=== PATIENT | male | born 1975 | race Caucasian/White ===

== ENCOUNTER 2018-02-10 08:41 | Emergency (ER) | payer MEDICAID, OTHER ==
[2018-02-10] MEDS ORDERED: LORazepam 2 MG/ML INJ IVP ONE ×2 (09:05→10:16)
[2018-02-10] MEDS ORDERED: NS 1,000 ML IV ONE ×2 (09:05→10:16)
--- NOTE | 2018-02-10 09:08 | EDPHY ---
H & P Smoking Status: Never smoked Time Seen by Provider: 02/10/18 08:56 HPI/ROS: CHIEF COMPLAINT: Vomiting, alcohol withdrawal HISTORY OF PRESENT ILLNESS: 42-year-old male presents to the emergency department with multiple episodes of vomiting and acute alcohol withdrawal. He typically drinks heavily daily and his last drink was yesterday afternoon. He was at the [facility] and he was sent to the emergency department for evaluation. He has been vomiting about every 0.5 hr. He denies hematemesis. No melena. Diffuse abdominal cramping. He has a headache. No diarrhea. No fevers or chills. No history of alcohol withdrawal seizure. REVIEW OF SYSTEMS: Constitutional: No fever, no chills. Eyes: No double or blurry vision. ENT: No sore throat. Respiratory: No cough, no shortness of breath. Cardiac: No chest pain. Gastrointestinal: Vomiting as above. Abdominal cramping. No diarrhea. Genitourinary: No dysuria. Musculoskeletal: No neck or back pain. Skin: No rashes. Neurological: headache. (Shaylee Beltran) Past Medical/Surgical History: Alcoholism, hypertension (Shaylee Beltran) Social History: Single and lives in [place] (Shaylee Beltran) Physical Exam: General Appearance: Alert, no distress. Tremulous. Eyes: Pupils equal and round. Extraocular motions are all intact. ENT: Mouth: Mucous membranes are dry. Respiratory: No wheezing, rhonchi, or rales, lungs are clear to auscultation. Cardiovascular: Regular rate and rhythm. Gastrointestinal: Abdomen is soft and nontender, no masses, no rebound or guarding, bowel sounds normal. Neurological: Alert and oriented x 3, cranial nerves II through XII grossly intact Skin: Warm and dry, no rashes. Musculoskeletal: Nontender to palpate along the cervical, thoracic or lumbar spine. Neck is supple. Extremities: Full range of motion and no peripheral edema. Psychiatric: Patient is oriented X 3, there is no agitation. (Shaylee Beltran) Constitutional: Initial Vital Signs Temperature (C) 36.6 C 02/10/18 08:48 Heart Rate 99 02/10/18 08:48 Respiratory Rate 16 02/10/18 08:48 Blood Pressure 147/115 H 02/10/18 08:48 O2 Sat (%) 95 02/10/18 08:48 O2 Delivery Mode Room Air Allergies/Adverse Reactions: lisinopril Allergy (Verified 02/10/18 08:47) Home Medications: Medication Instructions Recorded Amlodipine Besylate 02/10/18 Chlorthalidone 02/10/18 Citalopram 02/10/18 Levothyroxine 02/10/18 Losartan Potassium 02/10/18 Medical Decision Making ED Course/Re-evaluation: The patient had an IV established and laboratory studies were drawn. He will be given IV Ativan and IV normal saline. Laboratory studies are unremarkable. The patient was serially re-examined. He received a total of 2 mg of IV Ativan , 2 L of IV normal saline, and 50 mg of oral Librium. The patient was feeling much better. He was tolerating p.o. Fluids. He is comfortable being discharged back to the [facility]. (Shaylee Beltran) I did not see this patient while he was in the emergency department. However his care was discussed with PA while the patient was in the department. I agree with treatment plan and management (Jonathan Duval) Differential Diagnosis: Including but not limited to alcohol withdrawal, electrolyte abnormality, dehydration, delirium tremors (Shaylee Beltran) - Data Points Laboratory Results: Laboratory Results 02/10/18 09:13 02/10/18 09:13 Medications Given: Discontinued Medications Chlordiazepoxide (Librium 25 Mg Prepack#6) 1 btl TAKEHOME EDNOW ONE Stop: 02/10/18 11:31 Last Admin: 02/10/18 11:37 Dose: 1 btl Chlordiazepoxide HCl (Librium) 50 mg PO EDNOW ONE Stop: 02/10/18 10:36 Last Admin: 02/10/18 10:39 Dose: 50 mg Sodium Chloride (Ns) 1,000 mls @ 0 mls/hr IV ONCE ONE PRN Reason: Wide Open Stop: 02/10/18 09:06 Last Admin: 02/10/18 09:17 Dose: 1,000 mls Sodium Chloride (Ns) 1,000 mls @ 0 mls/hr IV ONCE ONE PRN Reason: Wide Open Stop: 02/10/18 10:17 Last Admin: 02/10/18 10:18 Dose: 1,000 mls Lorazepam (Ativan Injection) 1 mg IVP EDNOW ONE Stop: 02/10/18 09:06 Last Admin: 02/10/18 09:18 Dose: 1 mg Lorazepam (Ativan Injection) 1 mg IVP EDNOW ONE Stop: 02/10/18 10:17 Last Admin: 02/10/18 10:18 Dose: 1 mg Departure - Departure Disposition: Home, Routine, Self-Care Clinical Impression: Alcohol withdrawal, Vomiting Condition: Good Instructions: Acute Nausea and Vomiting (ED), Alcohol Withdrawal (ED) Additional Instructions: You received 2 L of IV normal saline, 2 mg of IV Ativan, and 50 mg of Librium orally. Your being sent to the [facility] for your alcohol withdrawal with a take-home pack of Librium. Referrals: [facility] [Outside] - As per Instructions
[2018-02-10 09:22] LABS: PLATELET COUNT 250 10^3/uL (150-400)
[2018-02-10] MEDS ORDERED: LORazepam 2 MG/ML INJ ONE (10:14)
[2018-02-10] MEDS ORDERED: chlordiazePOXIDE 25 MG CAP PO ONE (10:35)
[2018-02-10] MEDS ORDERED: CHLORDIAZEPOXIDE 25MG PREPK#6 BTL TAKEHOME ONE (11:30)
[2018-02-10 11:44] VITALS: BP 139/100
== END 2018-02-10 11:44 | disposition home or self-care (01) ==
DX: R11.10 Vomiting, unspecified (principal); I10 Essential (primary) hypertension; F10.239 Alcohol dependence with withdrawal, unspecified
CPT/HCPCS: 96374; J2060